=== PATIENT | male | born 1970 | race Caucasian/White ===

== ENCOUNTER → 2016-07-27 | Outpatient (CLI) | payer MEDICAID | LOC: LAB 07:53 | PROVIDERS: ATTEND Psychiatry & Neurology Psychiatry | DX: Z79.899 Other long term (current) drug therapy (principal); F63.81 Intermittent explosive disorder; F29 Unspecified psychosis not due to a substance or known physiological condition; F71 Moderate intellectual disabilities | CPT/HCPCS: 36415; 80164 ==

== ENCOUNTER 2016-09-04 17:46 | Emergency (ER) | payer MEDICAID ==
[2016-09-04 17:54] VITALS: BP 130/84; BMI 26.2
--- NOTE | 2016-09-04 18:20 | DR.LACERAT ---
HPI - Time Seen Time seen: 18:16 - Primary Care Physician Primary Care Physician: CRESCENCIO YOU - Complaints Chief Complaint:: PT HAS MR AND CAN'T SEE VERY WELL AND HE WAS FALLING DOWN THE CEMENT STEPS AND HIS NOSE IS SWOLLEN AND HE HAS A SMALL ONE CM LAC NOTED .. - Reviewed Nurses Notes Reviewed: Yes - Source History Provided: Patient, Family Member - Mode of Arrival Mode of Arrival: Ambulatory - Timing Onset of Chief Complaint: 09/04/16 - Context Mechanism: Fall - Severity Pain Severity: Mild Bleeding:: Controlled - Associated Signs and Symptoms Associated Signs and Symptoms: None - Other History Other History: Mental Retardation PMH - PMH Past Medical History: Yes Past Medical History Comment: MR Past Surgical History: No - Family History History of Family Medical Conditions: No - Social History Does patient currently use any type of tobacco product: No Have you used tobacco products in the last 12 months: No Type of Tobacco Use: None Does any household member use tobacco: No Alcohol Use: None Do you use any recreational Drugs:: No Lives With: Family Lives Where: Home - infectious screening In the last 2 months have you had wt loss of >10#?: NO Have you had fever, night sweats or hemotysis?: No Have you traveled outside the country in the last 6 months?: No Isolation: Standard ROS - Review of Systems Constitutional: No Symptoms Reported Eyes: No Symptoms Reported ENTM: Nose Pain (1cm cut) Respiratoy: No Symptoms Reported Cardiovascular: No Symptoms Reported Gastrointestinal/Abdominal: No Symptoms Reported Genitourinary: No Symptoms Reported Neurological: No Symptoms Reported Musculoskeletal: No Symptoms Reported Integumentary: Wound (nose) Hematologic/Lymphatic: No Symptoms Reported Endocrine: No Symptoms Reported Psychiatric: Other (mental retardation) PE - Vital Signs Vitals: Temperature 98.5 F Pulse Rate 119 Respiratory Rate 22 Blood Pressure 130/84 O2 Sat by Pulse Oximetry 96 - General Limitations: No Limitations General Appearance: Alert, In No Apparent Distress - Head Head Exam: Normal Inspection - Eyes Eye exam: Normal Appearance, EOMI, Periorbital Swelling. negative: Scleral Icterus, Conjunctival Injection - ENT ENT Exam: Other (nose cut 1cm) - Neck Neck Exam: Normal Inspection, Full ROM, Trachea Midline - Respiratory Respiratory Exam: negative: Accessory Muscle Use, Respiratory Distress - Extremities Extremities Exam: Normal Inspection - Back Back Exam: Normal Inspection - Neurologic Neurological Exam: Alert, CN II-XII Intact - Psychiatric Psychiatric Exam: Flat Affect - Skin Skin Exam: Normal Color. negative: Intact (1cm cut) Type of Lesion: Laceration ROR - XRAY XRAY Interpreted by: Radiologist XRAY Findings: Face xray: no fx - Diagnosis Discharge Problem: Cut of face - Discharge Plan Condition: Stable Prescriptions: Ibuprofen [MOTRIN TAB 600 MG *] 600 mg PO TID PRN #60 tab PRN Reason: Pain/Inflammation - Follow ups/Referrals Follow ups/Referrals: Robbin Neff [Primary Care Provider] - 3 days - Instructions
--- NOTE | 2016-09-04 18:46 | RAD ---
Four views of the facial bones Indication: Laceration to nose after fall Findings: No displaced nasal bone fracture identified. The bony nasal septum is midline. No air-flui d level identified within the maxillary or frontal sinuses. No discrete sinus mass. Mandible remains intact without evidence of dislocation. Impression: No displaced facial bone fracture identified. Reported By:
--- NOTE | 2016-09-04 19:58 | RAD ---
HISTORY: Fall Study: 2-view left knee Comparison: None Findings: No evidence for acute cortical disruption or dislocation. The medial and lateral tibiofemoral wesley rtments appear unremarkable without loss of significant joint space. The lateral radiograph fails t o demonstrate significant joint effusion. Patellofemoral compartment is normal in its appearance. IMPRESSION: 1. Negative exam. Reported By:
--- NOTE | 2016-09-04 20:21 | RAD ---
KNEE RADIOGRAPHS CLINICAL HISTORY: 46-year-old male status post fall on concrete with right knee pain. COMPARISON: None. FINDINGS: Frontal and lateral views of the right knee demonstrate no acute fracture or malalignment. There is no suprapatellar joint effusion. The medial and lateral joint spaces are maintained. The mineralization is normal. There is no aggressive bone lesion or abnormal periosteal reaction. The re is no soft tissue calcification or gas. IMPRESSION: No radiographic evidence for acute fracture or osseous abnormality of the right knee. Reported By:
== END 2016-09-04 20:23 | disposition home or self-care (01) ==
LOC: ER 17:57
PROC: 0WQ20ZZ Repair Face, Open Approach (ICD-10-PCS; principal; 2016-09-04)
DX: S01.91XA Laceration without foreign body of unspecified part of head, initial encounter (principal); W10.9XXA Fall (on) (from) unspecified stairs and steps, initial encounter; Y92.9 Unspecified place or not applicable
CPT/HCPCS: 12011; 70150; 73560; 99283

== ENCOUNTER 2016-10-14 19:50 | Emergency (ER) | payer MEDICAID ==
[2016-10-14 19:58] VITALS: BP 141/91; BMI 28.3
--- NOTE | 2016-10-14 20:34 | DR.GENAD ---
HPI - PCP Primary Care Physician: Tawanda - Complaint/Symptoms Chief Complaint Doctors Comments: Patient lives in a fpc. He spends some days with mom. She states that he has been having mini seizures that last 1-2 minutes, manifested by drawing his hands up and calling out for her. His seizures began during infancy. He is on single drug therapy. There is no fever, vomiting or diarrhea Chief Complaint:: " Hes having seizures one after another lasting about 2mins. - Source History Provided: Patient - Mode of Arrival Mode of Arrival: Ambulatory - Timing Onset of Chief Complaint: 10/14/16 PMH - PMH Past Medical History: Yes Past Medical History: Seizures Past Surgical History: No - Family History History of Family Medical Conditions: No Family Medical History: Diabetes Mellitus, Hypertension - Social History Alcohol Use: None Do you use any recreational Drugs:: No - infectious screening Have you traveled outside the country in the last 6 months?: No ROS - Review of Systems Eyes: No Symptoms Reported ENTM: No Symptoms Reported Respiratoy: No Symptoms Reported Cardiovascular: No Symptoms Reported Gastrointestinal/Abdominal: No Symptoms Reported Genitourinary: No Symptoms Reported Neurological: No Symptoms Reported Musculoskeletal: No Symptoms Reported Integumentary: No Symptoms Reported Hematologic/Lymphatic: No Symptoms Reported Endocrine: No Symptoms Reported Psychiatric: No Symptoms Reported All Other Systems: Reviewed and Negative PE - Vital Signs Vitals: Temperature 97.9 F Pulse Rate 96 Respiratory Rate 18 Blood Pressure 141/91 O2 Sat by Pulse Oximetry 98 - General Limitations: Language Barrier General Appearance: Alert, In No Apparent Distress - Head Head Exam: Normal Inspection, Atraumatic - Eyes Eye exam: Normal Appearance, PERRL, EOMI - ENT ENT Exam: Normal Exam External Ear Exam: Normal External Inspection TM/Canal Exam: Bilateral Normal Nose Exam: Normal Nose Exam, Sinus Tenderness Mouth Exam: Normal Inspection Throat Exam: Normal Inspection - Neck Neck Exam: Normal Inspection, Full ROM - Chest Chest Inspection: Normal Inspection - Respiratory Respiratory Exam: Normal Lung Sounds Bilat Respiratory Exam: Bilateral Clear to Auscultation - Cardiovascular Cardiovascular Exam: Regular Rate, Normal Rhythm - Abdominal Exam Abdominal Exam: Normal Inspection, Normal Bowel Sounds Abdominal Tenderness: negative: RUQ, RLQ, LUQ, LLQ, Epigastrium, Suprapubic, Diffuse, Mild, Moderate, Severe, Other - Extremities Extremities Exam: Normal Inspection, Full ROM - Back Back Exam: Normal Inspection - Neurologic Neurological Exam: Alert, Oriented X3, CN II-XII Intact - Psychiatric Psychiatric Exam: Normal Affect - Skin Skin Exam: Warm, Dry, Intact Course - Reevaluation 1st: Unchanged ROR - Labs Reviewed Laboratory Results Reviewed?: Yes (valporic level 91mg/dl) Laboratory: Valproic Acid 91.0 ug/mL (50-100) 10/14/16 21:08 - XRAY XRAY Interpreted by: Radiologist (Chest: poor inspiratory effort; no pulmonary infiltrate) - Diagnosis Discharge Problem: Seizure disorder - Discharge Plan Condition: Stable - Follow ups/Referrals Follow ups/Referrals: Robbin Neff [Primary Care Provider] - 3 days - Instructions
--- NOTE | 2016-10-14 23:14 | RAD ---
AP Chest Indication: Seizure disorder Comparison: 07/15/2011 Findings: The trachea is midline. The cardiac silhouette is unremarkable. The lungs are hypoinflated with cr owding of the central pulmonary vasculature and subsegmental atelectasis within the lung bases. No f ocal airspace opacity pleural effusion or pneumothorax. No acute osseous abnormality. IMPRESSION: 1. No acute cardiopulmonary abnormality. Reported By:
== END 2016-10-14 22:02 | disposition home or self-care (01) ==
LOC: ER 19:50
DX: G40.909 Epilepsy, unspecified, not intractable, without status epilepticus (principal)
CPT/HCPCS: 36415; 71010; 80164; 99282

== ENCOUNTER → 2017-04-01 | Outpatient (CLI) | payer MEDICAID ==
[2017-04-01 09:00] LABS: BASOPHILS % (AUTO) 0.8 % (0.2-1.0); EOSINOPHILS # (AUTO) 0.1 x10^3/uL (0.0-0.2); EOSINOPHILS % (AUTO) 1.1 % (0.9-2.9); HEMATOCRIT 48.3 % (42.0-54.0); HEMOGLOBIN 16.9 g/dL (13.5-18.0); LYMPHOCYTES # (AUTO) 1.4 X10^3/uL (1.3-2.9); MEAN CORPUSCULAR HEMOGLOBIN 33.7 pg (27.0-34.0); MEAN CORPUSCULAR HGB CONC 34.9 g/dL (33.0-35.0); MEAN CORPUSCULAR VOLUME 96.4 fL (80.0-100.0); MEAN PLATELET VOLUME 8.7 fL (7.4-11.0); MONOCYTES # (AUTO) 0.5 x10^3/uL (0.3-0.8); NEUTROPHILS # (AUTO) 3.7 x10^3/uL (2.2-4.8); NEUTROPHILS % (AUTO) 65.1 % (42.0-75.0); PLATELET COUNT 258 X10^3/uL (150.0-450.0); RED BLOOD COUNT 5.01 X10^6/uL (4.7-6.0); RED CELL DISTRIBUTION WIDTH 12.2 % (11.6-16.5); WHITE BLOOD COUNT 5.7 X10^3/uL (3.6-10.0)
[2017-04-01 09:21] LABS: ALANINE AMINOTRANSFERASE 26 Units/L (12-78); ALBUMIN 4.1 g/dL (3.4-5.0); ALKALINE PHOSPHATASE 85 Units/L (46-116); ASPARTATE AMINO TRANSFERASE 15 Units/L (15-37); BLOOD UREA NITROGEN 12 mg/dL (7-18); CALCIUM 9.3 mg/dL (8.5-10.1); CARBON DIOXIDE 26.5 mmol/L (21-32); CHLORIDE 106 mmol/L (98-107); CHOL/HDL RATIO 2.1 (0.0-5.0); CHOLESTEROL 159 mg/dL (0-200); CREATININE 1.08 mg/dL (0.70-1.30); HDL CHOLESTEROL 75 mg/dL (40-60); SODIUM 140 mmol/L (136-145); TOTAL PROTEIN 7.9 g/dL (6.4-8.2); TRIGLYCERIDES 96 mg/dL (0-150); TSH (3RD GENERATION) 1.316 uIU/mL (0.358-3.74); eGFR BLACK RACES > 60 (>60); eGFR NON BLACK RACES > 60 (>60)
== END ==
LOC: LAB 08:13
PROVIDERS: ATTEND Psychiatry & Neurology Psychiatry
DX: F63.81 Intermittent explosive disorder (principal); F29 Unspecified psychosis not due to a substance or known physiological condition; F71 Moderate intellectual disabilities; Z79.899 Other long term (current) drug therapy
CPT/HCPCS: 36415; 80053; 80061; 80164; 84443; 85025

== ENCOUNTER 2019-10-19 18:05 | Inpatient (IN) ==
[2019-10-19 18:21] VITALS: BMI 28.2
[2019-10-19] MEDS ORDERED: VENTOLIN or PROAIR HFA IN SCH (20:45)
--- NOTE | 2019-10-19 21:16 | RAD ---
HISTORYmother stated he was tested for covid last luna and today they were told he was positive. he has been running a fever and short of breathSTUDYCHEST, 1 [id number]/18/2017FINDINGSLow lung volume. Heart size is upper limits of normal. There are patchy bilateral perihilar and middle/lower lung zone airspace opacities, left greater than right. No pleural effusion or pneumothorax. Mild multilevel spondylosis.IMPRESSIONBilateral perihilar and middle/lower lung zone patchy airspace opacities, concerning for multifocal pneumonia.No pleural effusion or pneumothorax.Borderline cardiomegaly.Electronically signed by: Abi Fowler (Oct 19, 2019 21:15:09)
[2019-10-19 21:26] LABS: BASOPHILS % (AUTO) 0.3 % (0.2-1.0); HEMATOCRIT 43.8 % (42.0-54.0); LYMPHOCYTES # (AUTO) 0.7 X10^3/uL (1.3-2.9); LYMPHOCYTES % (AUTO) 8.8 % (21.0-51.0); MEAN CORPUSCULAR HEMOGLOBIN 34.3 pg (27.0-34.0); MEAN CORPUSCULAR HGB CONC 34.2 g/dL (33.0-35.0); MEAN CORPUSCULAR VOLUME 100.3 fL (80.0-100.0); MEAN PLATELET VOLUME 8.8 fL (7.4-11.0); MONOCYTES # (AUTO) 0.7 x10^3/uL (0.3-0.8); MONOCYTES % (AUTO) 8.7 % (0.0-13.0); NEUTROPHILS # (AUTO) 6.8 x10^3/uL (2.2-4.8); NEUTROPHILS % (AUTO) 82.2 % (42.0-75.0); PLATELET COUNT 181 X10^3/uL (150.0-450.0); RED BLOOD COUNT 4.36 X10^6/uL (4.7-6.0); RED CELL DISTRIBUTION WIDTH 12.1 % (11.6-16.5); WHITE BLOOD COUNT 8.3 X10^3/uL (3.6-10.0)
[2019-10-19 21:40] LABS: ALANINE AMINOTRANSFERASE 19 Units/L (12-78); ALBUMIN 3.1 g/dL (3.4-5.0); ALKALINE PHOSPHATASE 55 Units/L (46-116); ASPARTATE AMINO TRANSFERASE 27 Units/L (15-37); BLOOD UREA NITROGEN 16 mg/dL (7-18); CALCIUM 9.1 mg/dL (8.5-10.1); CARBON DIOXIDE 26.3 mmol/L (21-32); CHLORIDE 103 mmol/L (98-107); COR CA(FOR HYPOALB) 9.8 mg/dL (8.5-10.1); COR NA(FOR HYPERGLY) 142 mmol/L (136-145); CREATININE 1.29 mg/dL (0.70-1.30); SODIUM 142 mmol/L (136-145); TOTAL PROTEIN 7.7 g/dL (6.4-8.2); eGFR NON BLACK RACES > 60 (>60)
[2019-10-19] MEDS ORDERED: NS 1/2 1000 ML IV 1,000 ML IV ONE (21:47)
[2019-10-19] MEDS: VSL#3 PO SCH (22:01)
[2019-10-19] MEDS: TUSSIONEX PENNKINETIC SUSP PO SCH (22:01)
[2019-10-19] MEDS: LEVAQUIN PREMIX IV 750 MG 750 MG/150 ML BAG IV SCH (22:01)
[2019-10-19] MEDS: NS 1/2 1000 ML IV 1,000 ML IV SCH (22:01)
[2019-10-19] MEDS: ROBITUSSIN DM PO SCH (22:02)
[2019-10-19 22:16] LABS: ABG ALLEN TEST POS; ABG BASE EXCESS 5.2 mmol/L (-2.0-2.0)
[2019-10-20] MEDS: VENTOLIN or PROAIR HFA IN SCH ×4 (00:40→18:40)
[2019-10-20] MEDS: ROBITUSSIN DM PO SCH ×5 (02:54→20:55)
[2019-10-20 05:58] LABS: ABG ALLEN TEST POS; ABG BASE EXCESS 4.6 mmol/L (-2.0-2.0); ABG HCO3 28.3 mmol/L (22-26)
[2019-10-20] MEDS: DEPAKOTE D.R. TAB PO SCH ×3 (07:14→20:53)
[2019-10-20] MEDS ORDERED: DEPAKOTE D.R. TAB PO ONE ×2 (07:14→19:53)
[2019-10-20] MEDS ORDERED: TYLENOL 325 MG TAB PO ONE (07:28)
[2019-10-20] MEDS: TYLENOL 325 MG TAB PO PRN ×2 (07:30→15:41)
[2019-10-20 08:47] LABS: BASOPHILS # (AUTO) 0.1 X10^3/uL (0.0-0.1); BASOPHILS % (AUTO) 1.1 % (0.2-1.0); HEMATOCRIT 42.8 % (42.0-54.0); HEMOGLOBIN 14.5 g/dL (13.5-18.0); LYMPHOCYTES # (AUTO) 1.3 X10^3/uL (1.3-2.9); LYMPHOCYTES % (AUTO) 14.5 % (21.0-51.0); MEAN CORPUSCULAR HEMOGLOBIN 33.8 pg (27.0-34.0); MEAN CORPUSCULAR HGB CONC 33.9 g/dL (33.0-35.0); MEAN CORPUSCULAR VOLUME 99.7 fL (80.0-100.0); MEAN PLATELET VOLUME 9.3 fL (7.4-11.0); MONOCYTES # (AUTO) 0.8 x10^3/uL (0.3-0.8); MONOCYTES % (AUTO) 9.5 % (0.0-13.0); NEUTROPHILS # (AUTO) 6.6 x10^3/uL (2.2-4.8); NEUTROPHILS % (AUTO) 74.9 % (42.0-75.0); PLATELET COUNT 174 X10^3/uL (150.0-450.0); RED BLOOD COUNT 4.29 X10^6/uL (4.7-6.0); RED CELL DISTRIBUTION WIDTH 12.1 % (11.6-16.5); WHITE BLOOD COUNT 8.9 X10^3/uL (3.6-10.0)
[2019-10-20] MEDS: LOVENOX INJ 40 MG SYR SC SCH (08:53)
[2019-10-20] MEDS: VSL#3 PO SCH (08:54)
[2019-10-20] MEDS: TUSSIONEX PENNKINETIC SUSP PO SCH ×2 (08:54→20:55)
[2019-10-20 09:03] LABS: ALANINE AMINOTRANSFERASE 13 Units/L (12-78); ALBUMIN 2.7 g/dL (3.4-5.0); ALKALINE PHOSPHATASE 51 Units/L (46-116); ASPARTATE AMINO TRANSFERASE 29 Units/L (15-37); BLOOD UREA NITROGEN 17 mg/dL (7-18); CALCIUM 8.9 mg/dL (8.5-10.1); CARBON DIOXIDE 24.5 mmol/L (21-32); CHLORIDE 102 mmol/L (98-107); COR CA(FOR HYPOALB) 9.9 mg/dL (8.5-10.1); CREATININE 1.05 mg/dL (0.70-1.30); SODIUM 138 mmol/L (136-145); TOTAL PROTEIN 7.1 g/dL (6.4-8.2); eGFR NON BLACK RACES > 60 (>60)
[2019-10-20] MEDS ORDERED: NS 1/2 1000 ML IV 1,000 ML IV ONE (10:16)
[2019-10-20] MEDS: NS 1/2 1000 ML IV 1,000 ML IV SCH (11:10)
[2019-10-20] MEDS: SINGULAIR TAB 10 MG PO SCH (11:40)
[2019-10-20] MEDS: PEPCID TAB 20 MG PO SCH ×2 (11:40→20:55)
--- NOTE | 2019-10-20 12:02 | RAD ---
HISTORYCOUGH, CONGESTION, COVID POSTITIVESTUDYPortable AP chestCOMPARISONYesterday October 18FINDINGSThere is persistent bilateral lower lobe opacities, left overall worse than right. The heart size is normal. There is no effusion evident. There is no bony abnormality.IMPRESSIONPersistent lower lobe pneumonia, left worse than rightElectronically signed by: NAHID HESTER (Oct 20, 2019 12:00:50)
[2019-10-20] MEDS: TESSALON PERLES PO SCH ×2 (13:15→21:00)
--- NOTE | 2019-10-20 19:33 | DR.H&P ---
H&P - History & Physical for Day of: H&P Date: 10/19/19 - Chief Complaint Chief Complaint: COUGH, FEVER, SOB, MALAISE - History of Present Illness History of Present Illness: IS A 49 YEAR OLD PATIENT OF OURS WHO PRESENTED TO THE HOSPITAL A DIRECT ADMISSION DUE TO PERSISTENT COUGH, MALAISE, FEVER, AND SHORTNESS OF BREATH. PATIENTS MOTHER REPORTED THAT THEY WERE TOLD THIS MORNING THAT HE WAS POSITIVE FOR COVID-19. HE WAS PLACED ON ZITHROMAX, ROBITUSSIN, AND PREDNISONE ON 10/16/19. AUSCULTATION OF LUNG SILVA REVEALED SCATTERED WHEEZING THROUGHOUT. HIS PMH INCLUDES SEIZURES, HYPERLIPIDEMIA, GERD, MUSCULAR DYSTROPHY, OSTEOPOROSIS, MUSCLE WEAKNESS. [facility]. ON ARRIVAL TO THE HOSPITAL, VITALS WERE 99.8-78-18-88%RA-126/76. LABS WERE OBTAINED. ABNORMAL LAB VALUES INCLUDE THE FOLLOWING: RBC 4.36, GLUCOSE 114, LACTATE DEHYDROGENASE 333, FERRITIN 922, CRP 177.70, ALBUMIN 3.1, GLOBULIN 4.6. ABG REVEALED: PH 7.480, PC02 39.0, P02 67.0, HC03 29.0, 02 SATURATION 94.0, BASE EXCESS 5.2, FI02 32.0. BLOOD CULTURES ARE PENDING. A CHEST XRAY WAS OBTAINED AND REVEALED: Bilateral perihilar and middle/lower lung zone patchy airspace opacities, concerning for multifocal pneumonia. No pleural effusion or pneumothorax. Borderline cardiomegaly. HE WAS STARTED ON 1/2NS AT 75 ML/HR, LEVAQUIN 750MG IV DAILY, PROAIR INHALER 2 PUFFS Q6H, TUSSIONEX 5ML PO Q12H, TESSALON PERLES TID, ROBITUSSIN DM 10ML PO QID, LOVENOX 40MG SC DAILY, TYLENOL 650MG PO Q4H PRN, AND HIS HOME MEDICATIONS WERE RESUMED. WE WILL CONTINUE WITH CURRENT PLAN OF CARE TODAY. OTHERWISE, WE PLAN TO FOLLOW UP WITH AM LABS AND CHEST XRAY AND CONTINUE TO MONITOR. - Past Medical History Past Medical History: Dyslipidemia, GERD, Seizures Additional Medical History: MUSCULAR DYSPTROPHY, OSTEOPOROSIS, MUSCLE WEAKNESS - Past Surgical History Surgical History: Unknown - Family History Family Medical History: Diabetes Mellitus, Hypertension - Social History Does patient currently use any type of tobacco product: No Have you used tobacco products in the last 12 months: No Type of Tobacco Use: None Does any household member use tobacco: No Alcohol Use: None Drug Use: None - Medications Home Medications: milk Allergy (Verified 10/19/19 18:14) CONTINUE taking the following medications acetaminophen [Tylenol] 325 mg PO Q6H PRN 10/19/19 [History] alendronate 70 mg PO WEEKLY 10/19/19 [History] azithromycin 250 mg PO DAILY 10/19/19 [History] [id number]-MS [Bromfed DM] 5 ml PO Q6H PRN 10/19/19 [History] calcium carbonate-vitamin D3 [Caltrate 600 plus D] 600 - 800 tab PO BID 10/19/19 [History] clonazepam [Klonopin] 0.5 mg PO HS 10/19/19 [History] divalproex [Depakote] 500 mg PO BID 10/19/19 [History] ergocalciferol (vitamin D2) [Vitamin D2] 50,000 unit PO WEEKLY 10/19/19 [History] famotidine [Pepcid] 20 mg PO BID 10/19/19 [History] methylprednisolone See Rx Instructions .ROUTE .COMPLEX 10/19/19 [History] mirtazapine 45 mg PO HS 10/19/19 [History] montelukast [Singulair] 10 mg PO DAILY 10/19/19 [History] quetiapine [Seroquel] 400 mg PO DAILY 10/19/19 [History] simvastatin [Zocor] 20 mg PO HS 10/19/19 [History] trazodone 150 mg PO HS 10/19/19 [History] - Review of Systems Constitutional: Fever, Chills, Weakness, Malaise Eyes: No Symptoms Reported ENT: No Symptoms Reported Respiratory: See HPI, Cough, Shortness of Breath, Wheezing Cardiovascular: No Symptoms Reported Gastrointestinal: No Symptoms Reported Genitourinary: No Symptoms Reported Musculoskeletal: No Symptoms Reported Skin: No Symptoms Reported Neurological: Weakness - Physical Exam Vital Signs: Temperature 100.4 F Pulse Rate [Left] 101 Pulse Rate 101 Respiratory Rate 33 Blood Pressure [Right Arm] 100/59 Blood Pressure [Left Arm] 119/66 Blood Pressure 103/60 O2 Sat by Pulse Oximetry 96 Oriented: Normal Eyes: Normal Ear: Normal Nose: Normal Throat: Normal Respiratory: Wheezes Throughout Cardiovascular: Normal. negative: S3, S4, Murmur : Normal Auscultation: Bowel Sounds: Normal Palpation: Normal Tenderness: Normal Skin: Normal Musculoskeletal: Normal Psychiatric: Normal Mood Description: Calm Affect: Normal Speech Pattern: Clear - Assessment/Plan (1) COVID-19 Status: Acute Plan: ADMIT, 1/2NS AT 75 ML/HR, LEVAQUIN 750MG IV DAILY, PROAIR INHALER 2 PUFFS Q6H, TUSSIONEX 5ML PO Q12H, TESSALON PERLES TID, ROBITUSSIN DM 10ML PO QID, LOVENOX 40MG SC DAILY, TYLENOL 650MG PO Q4H PRN, AND HIS HOME MEDICATIONS WERE RESUMED, MONITOR LABS AND CHEST XRAY (2) Pneumonia Qualifiers: Pneumonia type: due to unspecified organism Laterality: bilateral Lung location: unspecified part of lung Qualified Code(s): J18.9 - Pneumonia, unspecified organism Status: Acute (3) SOB (shortness of breath) Status: Acute (4) Fever Qualifiers: Fever type: unspecified Qualified Code(s): R50.9 - Fever, unspecified Status: Acute (5) GERD (gastroesophageal reflux disease) Qualifiers: Esophagitis presence: esophagitis presence not specified Qualified Code(s): K21.9 - Gastro-esophageal reflux disease without esophagitis Status: Acute Plan: CONTINUE HOME MEDS (6) Hyperlipidemia Qualifiers: Hyperlipidemia type: mixed hyperlipidemia Qualified Code(s): E78.2 - Mixed hyperlipidemia Status: Acute Plan: CONTINUE HOME MEDS (7) Seizure disorder Status: Chronic - Allergies Allergies/Adverse Reactions: Allergies Allergy/AdvReac Type Severity Reaction Status Date / Time milk Allergy Verified 10/19/19 18:14
[2019-10-20] MEDS: MOTRIN TAB 800 MG PO PRN (19:35)
[2019-10-20] MEDS ORDERED: REMERON ONE ×2 (19:58→20:12)
[2019-10-20] MEDS ORDERED: ZOCOR TAB 20 MG PO ONE (19:58)
[2019-10-20] MEDS ORDERED: DESYREL PO ONE ×2 (19:58→20:12)
[2019-10-20] MEDS: DESYREL PO SCH (20:53)
[2019-10-20] MEDS: KLONOPIN TAB 0.5 MG PO SCH (20:54)
[2019-10-20] MEDS: LEVAQUIN PREMIX IV 750 MG 750 MG/150 ML BAG IV SCH (20:54)
[2019-10-20] MEDS: REMERON PO SCH (20:54)
[2019-10-20] MEDS: ZOCOR TAB 20 MG PO SCH (20:54)
[2019-10-21] MEDS ORDERED: NS 1/2 1000 ML IV 1,000 ML IV ONE ×2 (01:01→16:15)
[2019-10-21] MEDS: VENTOLIN or PROAIR HFA IN SCH ×4 (01:22→16:50)
[2019-10-21] MEDS: NS 1/2 1000 ML IV 1,000 ML IV SCH ×2 (01:27→16:30)
[2019-10-21] MEDS: ROBITUSSIN DM PO SCH ×5 (04:33→21:16)
[2019-10-21] MEDS: TESSALON PERLES PO SCH ×3 (05:00→21:17)
[2019-10-21 05:30] LABS: BASOPHILS # (AUTO) 0.1 X10^3/uL (0.0-0.1); BASOPHILS % (AUTO) 0.8 % (0.2-1.0); EOSINOPHILS % (AUTO) 0.1 % (0.9-2.9); HEMATOCRIT 45.8 % (42.0-54.0); HEMOGLOBIN 15.4 g/dL (13.5-18.0); LYMPHOCYTES # (AUTO) 2.4 X10^3/uL (1.3-2.9); LYMPHOCYTES % (AUTO) 22.6 % (21.0-51.0); MEAN CORPUSCULAR HEMOGLOBIN 34.4 pg (27.0-34.0); MEAN CORPUSCULAR HGB CONC 33.7 g/dL (33.0-35.0); MEAN CORPUSCULAR VOLUME 102.1 fL (80.0-100.0); MEAN PLATELET VOLUME 9.3 fL (7.4-11.0); MONOCYTES # (AUTO) 0.3 x10^3/uL (0.3-0.8); MONOCYTES % (AUTO) 2.9 % (0.0-13.0); NEUTROPHILS # (AUTO) 7.8 x10^3/uL (2.2-4.8); NEUTROPHILS % (AUTO) 73.6 % (42.0-75.0); PLATELET COUNT 231 X10^3/uL (150.0-450.0); RED BLOOD COUNT 4.49 X10^6/uL (4.7-6.0); WHITE BLOOD COUNT 10.6 X10^3/uL (3.6-10.0)
[2019-10-21 05:44] LABS: ABG BASE EXCESS -0.1 mmol/L (-2.0-2.0); ABG HCO3 25.4 mmol/L (22-26)
[2019-10-21 06:23] LABS: eGFR NON BLACK RACES > 60 (>60)
[2019-10-21 06:41] LABS: ALANINE AMINOTRANSFERASE 34 Units/L (12-78); ALBUMIN 2.4 g/dL (3.4-5.0); ALKALINE PHOSPHATASE 81 Units/L (46-116); ASPARTATE AMINO TRANSFERASE 75 Units/L (15-37); BLOOD UREA NITROGEN 17 mg/dL (7-18); CALCIUM 8.3 mg/dL (8.5-10.1); CARBON DIOXIDE 26.4 mmol/L (21-32); CHLORIDE 101 mmol/L (98-107); COR CA(FOR HYPOALB) 9.6 mg/dL (8.5-10.1); CREATININE 1.24 mg/dL (0.70-1.30); SODIUM 137 mmol/L (136-145); TOTAL PROTEIN 7.2 g/dL (6.4-8.2)
[2019-10-21] MEDS ORDERED: DEPAKOTE D.R. TAB PO ONE ×2 (08:29→20:07)
[2019-10-21] MEDS: PEPCID TAB 20 MG PO SCH ×2 (09:04→21:15)
[2019-10-21] MEDS: SINGULAIR TAB 10 MG PO SCH (09:04)
[2019-10-21] MEDS: VSL#3 PO SCH (09:04)
[2019-10-21] MEDS: OSCAL+D or CALTRATE+D PO SCH (09:05)
[2019-10-21] MEDS: LOVENOX INJ 40 MG SYR SC SCH (09:05)
[2019-10-21] MEDS: DEPAKOTE D.R. TAB PO SCH ×2 (09:06→21:14)
[2019-10-21] MEDS: MOTRIN TAB 800 MG PO PRN ×2 (09:10→21:24)
[2019-10-21] MEDS: TUSSIONEX PENNKINETIC SUSP PO SCH ×2 (09:10→21:16)
[2019-10-21] MEDS ORDERED: REMDESIVIR (INVESTIGATIONAL DRUG GS-5734) 200 MG in NS 250 ML IV 250 ML IV NR (09:30)
[2019-10-21] MEDS: ACTEMRA 400 MG in NS 100 ML IV 80 ML IV SCH (11:50)
[2019-10-21] MEDS: TYLENOL 325 MG TAB PO PRN (12:04)
[2019-10-21] MEDS: SOLU-Medrol 40 MG VIAL IVP SCH ×2 (13:54→21:17)
[2019-10-21] MEDS: KLONOPIN TAB 0.5 MG PO SCH (21:14)
[2019-10-21] MEDS: DESYREL PO SCH (21:14)
[2019-10-21] MEDS: LEVAQUIN PREMIX IV 750 MG 750 MG/150 ML BAG IV SCH (21:14)
[2019-10-21] MEDS: REMERON PO SCH (21:15)
[2019-10-21] MEDS: ZOCOR TAB 20 MG PO SCH (21:17)
[2019-10-22] MEDS: VENTOLIN or PROAIR HFA IN SCH ×5 (00:50→19:49)
[2019-10-22 05:16] LABS: BASOPHILS % (AUTO) 0.2 % (0.2-1.0); HEMATOCRIT 41.2 % (42.0-54.0); HEMOGLOBIN 13.9 g/dL (13.5-18.0); LYMPHOCYTES # (AUTO) 0.6 X10^3/uL (1.3-2.9); LYMPHOCYTES % (AUTO) 6.7 % (21.0-51.0); MEAN CORPUSCULAR HEMOGLOBIN 34.2 pg (27.0-34.0); MEAN CORPUSCULAR HGB CONC 33.8 g/dL (33.0-35.0); MEAN CORPUSCULAR VOLUME 101.2 fL (80.0-100.0); MONOCYTES # (AUTO) 0.2 x10^3/uL (0.3-0.8); MONOCYTES % (AUTO) 1.9 % (0.0-13.0); NEUTROPHILS % (AUTO) 91.2 % (42.0-75.0); PLATELET COUNT 319 X10^3/uL (150.0-450.0); RED BLOOD COUNT 4.07 X10^6/uL (4.7-6.0); RED CELL DISTRIBUTION WIDTH 12.1 % (11.6-16.5); WHITE BLOOD COUNT 8.8 X10^3/uL (3.6-10.0)
[2019-10-22 05:18] LABS: ABG ALLEN TEST POS; ABG BASE EXCESS 0.1 mmol/L (-2.0-2.0); ABG HCO3 25.4 mmol/L (22-26)
[2019-10-22 05:34] LABS: ALANINE AMINOTRANSFERASE 21 Units/L (12-78); ALBUMIN 1.9 g/dL (3.4-5.0); ALKALINE PHOSPHATASE 62 Units/L (46-116); ASPARTATE AMINO TRANSFERASE 43 Units/L (15-37); BLOOD UREA NITROGEN 18 mg/dL (7-18); CALCIUM 8.5 mg/dL (8.5-10.1); CARBON DIOXIDE 25.4 mmol/L (21-32); CHLORIDE 106 mmol/L (98-107); COR CA(FOR HYPOALB) 10.2 mg/dL (8.5-10.1); COR NA(FOR HYPERGLY) 140 mmol/L (136-145); CREATININE 1.14 mg/dL (0.70-1.30); SODIUM 139 mmol/L (136-145); TOTAL PROTEIN 6.4 g/dL (6.4-8.2); eGFR NON BLACK RACES > 60 (>60)
[2019-10-22] MEDS ORDERED: NS 1/2 1000 ML IV 1,000 ML IV ONE (05:37)
[2019-10-22 05:41] LABS: BAND NEUTROPHILS % 44 % (0-10); METAMYELOCYTES % 11; MYELOCYTES % 3
[2019-10-22 06:17] LABS: PLATELET MORPHOLOGY COMMENT NORMAL (NORMAL)
[2019-10-22] MEDS: NS 1/2 1000 ML IV 1,000 ML IV SCH ×2 (06:17→20:16)
[2019-10-22] MEDS: TESSALON PERLES PO SCH ×3 (06:18→21:15)
[2019-10-22] MEDS: SOLU-Medrol 40 MG VIAL IVP SCH ×3 (06:18→22:15)
--- NOTE | 2019-10-22 08:04 | RAD ---
HISTORYShortness of breathSTUDYChest AP [id number]/23/2020FINDINGSPositioning is less than optimal with the patient's chin obscurin g the left lung apex. The patient is rotated somewhat to the left. There is near complete opacificati on of the left yamliex thorax representing either worsening left lung infiltrates, left lung volume loss or combination. Chest CT with contrast is recommended for further evaluation. Heart size is difficul t to assess due to obscuration of the heart borders. The right lung appears free of acute infiltrates right basilar subsegmental atelectasis is present. No definite pleural effusions are identified. Bon y thorax is unremarkable.IMPRESSIONIncreasing opacification of the left yamilex thorax when compared wit h the prior examination which could be due to worsening infiltrates, developing atelectasis, or both. Chest CT with contrast would be of further diagnostic value.Subsegmental atelectasis right lung base Electronically signed by: KATHERINE MIRZA (Oct 22, 2019 08:03:22)
[2019-10-22] MEDS ORDERED: DEPAKOTE D.R. TAB PO ONE ×2 (08:39→19:42)
[2019-10-22] MEDS: ACTEMRA 400 MG in NS 100 ML IV 80 ML IV SCH (08:59)
[2019-10-22] MEDS: DEPAKOTE D.R. TAB PO SCH ×2 (09:00→20:12)
[2019-10-22] MEDS: PEPCID TAB 20 MG PO SCH ×2 (09:01→20:13)
[2019-10-22] MEDS: OSCAL+D or CALTRATE+D PO SCH (09:01)
[2019-10-22] MEDS: ROBITUSSIN DM PO SCH ×4 (09:03→20:13)
[2019-10-22] MEDS: VSL#3 PO SCH (09:03)
[2019-10-22] MEDS: SINGULAIR TAB 10 MG PO SCH (09:03)
[2019-10-22] MEDS: TYLENOL 325 MG TAB PO PRN ×2 (09:04→20:15)
[2019-10-22] MEDS: TUSSIONEX PENNKINETIC SUSP PO SCH ×2 (09:06→20:14)
[2019-10-22] MEDS: LOVENOX INJ 40 MG SYR SC SCH (09:37)
[2019-10-22] MEDS: REMDESIVIR (INVESTIGATIONAL DRUG GS-5734) 100 MG in NS 250 ML IV 250 ML IV SCH (10:32)
--- NOTE | 2019-10-22 10:36 | PCM.PROG ---
Progress Note - Progress Note for Day of Date of Exam: 10/21/19 - Subjective Subjective: IS BEING TREATED FOR COVID-19, PNEUMONIA. HE CONTINUES TO HAVE FEVER. TODAY, HE IS ALERT, LYING IN BED ON MORNING ROUNDS. HE CONTINUES WITH COUGH AND SHORTNESS OF BREATH. STAFF REPORTS THAT HIS OXYGEN SATURATIONS HAVE FALLEN TO THE 70s ON NASAL CANNULA. HE WAS PLACED ON THE VENTI-MASK AND THEN ON NON-REBREATHER. OXYGEN SATURATIONS INCREASED TO THE 90s AFTER BEING PLACE ON NON-REBREATHER. ON EXAMINATION, HEART IS REGULAR IN RATE AND RHYTHM. BILATERAL LUNGS ARE NOTED WITH SCATTERED WHEEZING THROUGHOUT. ABDOMEN IS ROUND, SOFT, AND NON-TENDER WITH NORMAL BOWEL SOUNDS NOTED IN ALL QUADRANTS. HIS VITALS THIS MORNING ARE: 103.3-682-04-100%NRP-136/63. LABS WERE OBTAINED. ABNORMAL LAB VALUES INCLUDE THE FOLLOWING: WBC 10.6, RBC 4.49, CALCIUM 8.3, FERRITIN 1920, AST 75, CRP 262.20, ALBUMIN 2.4, GLOBULIN 4.8. BLOOD CULTURES WERE SET UP. LABS WERE OBTAINED. ABNORMAL LAB VALUES INCLUDE THE FOLLOWING: Bilateral perihilar and middle/lower lung zone patchy airspace opacities, concerning for multifocal pneumonia. No pleural effusion or pneumothorax. Borderline cardiomegaly. HE IS CURRENTLY RECEIVING 1/2NS AT 75 ML/HR, LEVAQUIN 750MG IV DAILY, PROAIR INHALER 2 PUFFS Q6H, TUSSIONEX 5ML PO Q12H, TESSALON PERLES TID, ROBITUSSIN DM 10ML PO QID, LOVENOX 40MG SC DAILY, TYLENOL 650MG PO Q4H PRN, AND HIS HOME MEDICATIONS WERE RESUMED. TODAY, WE WILL START REMDESIVIR 200MG IV X 1 DOSE, THEN 100MG IV DAILY, ACTEMRA 400MG IV X 1 DOSE. WE WILL START SOLU-MEDROL 80MG IV Q8H TONIGHT. OTHERWISE, WE WILL FOLLOW UP WITH AM LABS AND CONTINUE TO MONITOR. - Past Medical Family Social History Past Med/Fam/Surg Hx: No changes since H&P Allergies: Allergies milk Allergy (Verified 10/19/19 18:14) - Review of Systems ROS: No change since H&P - Vital Signs and I&O's Vital Signs: Temperature 100.1 F Pulse Rate [Left] 127 Pulse Rate 111 Respiratory Rate 48 Blood Pressure [Right Calf] 136/62 Blood Pressure [Right Arm] 84/53 Blood Pressure [Left Arm] 119/66 Blood Pressure 103/60 O2 Sat by Pulse Oximetry 84 Intake and Output: Intake & Output 10/19/19 10/20/19 10/21/19 10/22/19 11:59 11:59 11:59 11:59 Intake Total 1050 / 1050 2880 / 2880 2680 / 2680 Balance 1050 / 1050 2880 / 2880 2680 / 2680 - Physical Exam Oriented: Normal Eyes: Normal Ear: Normal Nose: Normal Throat: Normal Respiratory: Generalized, Wheezes Cardiovascular: Normal. negative: S3, S4, Murmur : Normal Auscultation: Bowel Sounds: Normal Palpation: Normal Tenderness: Normal Skin: Normal Musculoskeletal: Normal Psychiatric: Normal Mood Description: Calm Affect: Normal Speech Pattern: Clear, Inappropriate - Laboratory and Diagnostics Result Diagrams: 10/22/19 04:37 10/22/19 04:37 Labs: 10/19/19 21:15 Blood Blood Culture - Preliminary 10/19/19 21:05 Blood Blood Culture - Preliminary Laboratory WBC 8.8 X10^3/uL (3.6-10.0) 10/22/19 04:37 RBC 4.07 X10^6/uL (4.7-6.0) L 10/22/19 04:37 Hgb 13.9 g/dL (13.5-18.0) 10/22/19 04:37 Hct 41.2 % (42.0-54.0) L 10/22/19 04:37 MCV 101.2 fL (80.0-100.0) H 10/22/19 04:37 MCH 34.2 pg (27.0-34.0) H 10/22/19 04:37 MCHC 33.8 g/dL (33.0-35.0) 10/22/19 04:37 RDW 12.1 % (11.6-16.5) 10/22/19 04:37 Plt Count 319 X10^3/uL (150.0-450.0) 10/22/19 04:37 Plt Count Comment Adequate (ADEQUATE) 10/22/19 04:37 MPV 9.0 fL (7.4-11.0) 10/22/19 04:37 Neut % (Auto) 91.2 % (42.0-75.0) H 10/22/19 04:37 Lymph % (Auto) 6.7 % (21.0-51.0) L 10/22/19 04:37 Meigs % (Auto) 1.9 % (0.0-13.0) 10/22/19 04:37 Eos % (Auto) 0.0 % (0.9-2.9) L 10/22/19 04:37 Baso % (Auto) 0.2 % (0.2-1.0) 10/22/19 04:37 Neut # (Auto) 8.0 x10^3/uL (2.2-4.8) H 10/22/19 04:37 Lymph # (Auto) 0.6 X10^3/uL (1.3-2.9) L 10/22/19 04:37 Meigs # (Auto) 0.2 x10^3/uL (0.3-0.8) L 10/22/19 04:37 Eos # (Auto) 0.0 x10^3/uL (0.0-0.2) 10/22/19 04:37 Baso # (Auto) 0.0 X10^3/uL (0.0-0.1) 10/22/19 04:37 Absolute Nucleated RBC 0.1 /100WBC 10/22/19 04:37 Total Counted 100 10/22/19 04:37 Neutrophils % (Manual) 25 % (39-76) L 10/22/19 04:37 Band Neutrophils % 44 % (0-10) H 10/22/19 04:37 Lymphocytes % (Manual) 11 % (13-43) L 10/22/19 04:37 Monocytes % (Manual) 6 % (4-9) 10/22/19 04:37 Metamyelocytes % 11 10/22/19 04:37 Myelocytes % 3 10/22/19 04:37 Plt Morphology Comment Normal (NORMAL) 10/22/19 04:37 RBC Morphology Normal (NORMAL) 10/22/19 04:37 Sample Site Lr 10/22/19 05:05 ABG pH 7.380 (7.35-7.45) 10/22/19 05:05 ABG pCO2 43.0 mmHg (35.0-45.0) 10/22/19 05:05 ABG pO2 52.0 mmHg (80.0-100.0) L 10/22/19 05:05 ABG HCO3 25.4 mmol/L (22-26) 10/22/19 05:05 ABG O2 Saturation 86.0 % (90-100) L 10/22/19 05:05 ABG Base Excess 0.1 mmol/L (-2.0-2.0) 10/22/19 05:05 Sandeep Test Pos 10/22/19 05:05 A-a Gradient 557.0 mmHg 10/22/19 05:05 FiO2 93.0 10/22/19 05:05 Blood Gas Comments Thuan well ae 10/22/19 05:05 Sodium 139 mmol/L (136-145) 10/22/19 04:37 Corrected Sodium 140 mmol/L (136-145) 10/22/19 04:37 Potassium 4.1 mmol/L (3.5-5.1) 10/22/19 04:37 Chloride 106 mmol/L (98-107) 10/22/19 04:37 Carbon Dioxide 25.4 mmol/L (21-32) 10/22/19 04:37 BUN 18 mg/dL (7-18) 10/22/19 04:37 Creatinine 1.14 mg/dL (0.70-1.30) 10/22/19 04:37 Est GFR (MDRD) Af Amer > 60 (>60) 10/22/19 04:37 Est GFR (MDRD) Non-Af > 60 (>60) 10/22/19 04:37 Glucose 162 mg/dL (65-99) H 10/22/19 04:37 Calcium 8.5 mg/dL (8.5-10.1) 10/22/19 04:37 Corrected Calcium 10.2 mg/dL (8.5-10.1) H 10/22/19 04:37 Ferritin 2144 ng/mL (26-388) H 10/22/19 04:37 Total Bilirubin 0.20 mg/dL (0.2-1.0) 10/22/19 04:37 AST 43 Units/L (15-37) H 10/22/19 04:37 ALT 21 Units/L (12-78) 10/22/19 04:37 Alkaline Phosphatase 62 Units/L (46-116) 10/22/19 04:37 Lactate Dehydrogenase 333 Units/L (85-227) H 10/19/19 21:05 C-Reactive Protein > 250.00 mg/L (0-3.0) H 10/22/19 04:37 Total Protein 6.4 g/dL (6.4-8.2) 10/22/19 04:37 Albumin 1.9 g/dL (3.4-5.0) L 10/22/19 04:37 Globulin 4.5 g/dL (2.5-4.5) 10/22/19 04:37 Albumin/Globulin Ratio 0.4 Ratio (1.1-2.1) L 10/22/19 04:37 - Plan (1) COVID-19 Status: Acute Plan: 1/2NS AT 75 ML/HR, LEVAQUIN 750MG IV DAILY, PROAIR INHALER 2 PUFFS Q6H, TUSSIONEX 5ML PO Q12H, TESSALON PERLES TID, ROBITUSSIN DM 10ML PO QID, LOVENOX 40MG SC DAILY, TYLENOL 650MG PO Q4H PRN, AND HIS HOME MEDICATIONS WERE RESUMED, MONITOR LABS AND CHEST XRAY, REMDESIVIR 200MG IV X 1 DOSE, THEN 100MG IV DAILY, ACTEMRA 400MG IV X 1 DOSE, SOLU-MEDROL 80MG IV TID, CONTINUE TO MONITOR. (2) Pneumonia Status: Acute Qualifiers: Pneumonia type: due to unspecified organism Laterality: bilateral Lung location: unspecified part of lung Qualified Code(s): J18.9 - Pneumonia, unspecified organism (3) SOB (shortness of breath) Status: Acute (4) Fever Status: Acute Qualifiers: Fever type: unspecified Qualified Code(s): R50.9 - Fever, unspecified (5) GERD (gastroesophageal reflux disease) Status: Acute Qualifiers: Esophagitis presence: esophagitis presence not specified Qualified Code(s): K21.9 - Gastro-esophageal reflux disease without esophagitis Plan: CONTINUE HOME MEDS (6) Hyperlipidemia Status: Acute Qualifiers: Hyperlipidemia type: mixed hyperlipidemia Qualified Code(s): E78.2 - Mixed hyperlipidemia Plan: CONTINUE HOME MEDS (7) Seizure disorder Status: Chronic
[2019-10-22] MEDS ORDERED: VITAMIN D (1.25MG) PO SCH (10:53)
[2019-10-22] MEDS ORDERED: MOTRIN TAB 800 MG PO ONE (15:41)
[2019-10-22] MEDS: MOTRIN TAB 800 MG PO PRN (15:49)
[2019-10-22] MEDS: DESYREL PO SCH (20:12)
[2019-10-22] MEDS: KLONOPIN TAB 0.5 MG PO SCH (20:12)
[2019-10-22] MEDS: REMERON PO SCH (20:13)
[2019-10-22] MEDS: LEVAQUIN PREMIX IV 750 MG 750 MG/150 ML BAG IV SCH (20:13)
[2019-10-22] MEDS: ZOCOR TAB 20 MG PO SCH (20:14)
[2019-10-23] MEDS ORDERED: NS 1/2 1000 ML IV 1,000 ML IV ONE ×2 (00:24→11:41)
[2019-10-23] MEDS: NS 1/2 1000 ML IV 1,000 ML IV SCH ×2 (00:30→16:10)
[2019-10-23] MEDS: VENTOLIN or PROAIR HFA IN SCH ×3 (00:40→11:40)
[2019-10-23 05:24] LABS: BASOPHILS % (AUTO) 0.3 % (0.2-1.0); HEMATOCRIT 41.2 % (42.0-54.0); HEMOGLOBIN 13.8 g/dL (13.5-18.0); LYMPHOCYTES # (AUTO) 0.7 X10^3/uL (1.3-2.9); LYMPHOCYTES % (AUTO) 5.1 % (21.0-51.0); MEAN CORPUSCULAR HEMOGLOBIN 33.8 pg (27.0-34.0); MEAN CORPUSCULAR HGB CONC 33.6 g/dL (33.0-35.0); MEAN CORPUSCULAR VOLUME 100.9 fL (80.0-100.0); MEAN PLATELET VOLUME 9.3 fL (7.4-11.0); MONOCYTES # (AUTO) 1.1 x10^3/uL (0.3-0.8); NEUTROPHILS # (AUTO) 11.8 x10^3/uL (2.2-4.8); NEUTROPHILS % (AUTO) 86.6 % (42.0-75.0); PLATELET COUNT 408 X10^3/uL (150.0-450.0); RED BLOOD COUNT 4.09 X10^6/uL (4.7-6.0); RED CELL DISTRIBUTION WIDTH 12.1 % (11.6-16.5); WHITE BLOOD COUNT 13.6 X10^3/uL (3.6-10.0)
[2019-10-23 05:43] LABS: ALANINE AMINOTRANSFERASE 20 Units/L (12-78); ALKALINE PHOSPHATASE 83 Units/L (46-116); ASPARTATE AMINO TRANSFERASE 36 Units/L (15-37); BLOOD UREA NITROGEN 23 mg/dL (7-18); CALCIUM 8.5 mg/dL (8.5-10.1); CARBON DIOXIDE 25.9 mmol/L (21-32); CHLORIDE 109 mmol/L (98-107); COR CA(FOR HYPOALB) 10.1 mg/dL (8.5-10.1); COR NA(FOR HYPERGLY) 145 mmol/L (136-145); CREATININE 1.07 mg/dL (0.70-1.30); SODIUM 144 mmol/L (136-145); TOTAL PROTEIN 6.1 g/dL (6.4-8.2); eGFR NON BLACK RACES > 60 (>60)
[2019-10-23] MEDS: SOLU-Medrol 40 MG VIAL IVP SCH ×3 (05:51→21:00)
[2019-10-23] MEDS: TYLENOL 325 MG TAB PO PRN (05:51)
[2019-10-23] MEDS: TESSALON PERLES PO SCH ×3 (05:51→21:00)
[2019-10-23 06:38] LABS: ABG BASE EXCESS 7.8 mmol/L (-2.0-2.0)
[2019-10-23 06:39] LABS: ABG ALLEN TEST POS
--- NOTE | 2019-10-23 06:46 | RAD ---
HISTORYShortness of breathSTUDYChest AP [id number]/25/2020FINDINGSPatient is rotated to the left. Heart size difficult to assess du e to obscuration of the left heart border by near complete opacification of the left yamilex thorax with subsequent shift of the heart mediastinal structures to the left. The opacification is likely due to a combination of infiltrates and left lung volume loss. Chest CT with contrast may be of further karen gnostic value. Interstitial lung changes are now present throughout the right lung. Bony thorax is un remarkable.IMPRESSIONPersistent opacification of the left yamilex thorax likely due to a combination of consolidation and atelectasis. Chest CT with contrast would be of further diagnostic valueInterstitia l lung changes throughout the right lungElectronically signed by: KATHERINE MIRZA (Oct 23, 2019 06:45:4 7)
[2019-10-23] MEDS ORDERED: DEPAKOTE D.R. TAB PO ONE ×2 (08:52→20:02)
[2019-10-23] MEDS: REMDESIVIR (INVESTIGATIONAL DRUG GS-5734) 100 MG in NS 250 ML IV 250 ML IV SCH (09:03)
[2019-10-23] MEDS: SINGULAIR TAB 10 MG PO SCH (09:05)
[2019-10-23] MEDS: PEPCID TAB 20 MG PO SCH ×2 (09:05→20:15)
[2019-10-23] MEDS: DEPAKOTE D.R. TAB PO SCH ×2 (09:05→20:15)
[2019-10-23] MEDS: VSL#3 PO SCH (09:06)
[2019-10-23] MEDS: OSCAL+D or CALTRATE+D PO SCH (09:07)
[2019-10-23] MEDS: LOVENOX INJ 40 MG SYR SC SCH (09:08)
[2019-10-23] MEDS: ROBITUSSIN DM PO SCH ×4 (09:13→20:15)
[2019-10-23] MEDS: TUSSIONEX PENNKINETIC SUSP PO SCH ×2 (10:00→20:15)
[2019-10-23] MEDS ORDERED: KLONOPIN TAB 0.5 MG PO ONE (13:31)
--- NOTE | 2019-10-23 15:08 | PCM.PROG ---
Progress Note - Progress Note for Day of Date of Exam: 10/22/19 - Subjective Subjective: IS BEING TREATED FOR COVID-19, PNEUMONIA. HE CONTINUES TO HAVE FEVER. TODAY, HE IS ALERT, LYING IN BED ON MORNING ROUNDS. HE CONTINUES WITH COUGH AND SHORTNESS OF BREATH. HIS BREATHING APPEARS TO BE MORE LABORED TODAY. HE IS ON HEATED HIGH FLOW OXYGEN AT THIS TIME. STAFF REPORTS THAT HE HAS FREQUENT COUGHING SPELLS. WHEN HE HAS THESE SPELLS, HIS OXYGEN SATURATIONS FALL TO THE 70s. ON EXAMINATION, HEART IS REGULAR IN RATE AND RHYTHM. BILATERAL LUNGS ARE NOTED WITH SCATTERED WHEEZING THROUGHOUT. ABDOMEN IS ROUND, SOFT, AND NON- TENDER WITH NORMAL BOWEL SOUNDS NOTED IN ALL QUADRANTS. HIS VITALS THIS MORNING ARE: 100.1-95-36-98%-126/67. LABS WERE OBTAINED. ABNORMAL LAB VALUES INCLUDE THE FOLLOWING: RBC 4.07, HCT 41.2, GLUCOSE 162, FERRITIN 2144, AST 43, CRP >250.00, ALBUMIN 1.9. BLOOD CULTURES WERE SET UP. ABG REVEALED: PH 7.380, PC02 43.0, P02 52.0, HC03 25.4, 02 SATURATION 86.0, FI02 93.0. HE IS CURRENTLY RECEIVING 1/2NS AT 75 ML/HR, LEVAQUIN 750MG IV DAILY, REMDESIVIR 100MG IV DAILY, SOLU-MEDROL 80MG IV Q8H, PROAIR INHALER 2 PUFFS Q6H, TUSSIONEX 5ML PO Q12H, TESSALON PERLES TID, ROBITUSSIN DM 10ML PO QID, LOVENOX 40MG SC DAILY, TYLENOL 650MG PO Q4H PRN, AND HIS HOME MEDICATIONS WERE RESUMED. WE WILL CONTINUE WITH CURRENT PLAN OF CARE TODAY. OTHERWISE, WE WILL FOLLOW UP WITH AM LABS AND CONTINUE TO MONITOR. - Past Medical Family Social History Past Med/Fam/Surg Hx: No changes since H&P Allergies: Allergies milk Allergy (Verified 10/19/19 18:14) - Review of Systems ROS: No change since H&P - Vital Signs and I&O's Vital Signs: Temperature 98.3 F Pulse Rate [Left] 62 Pulse Rate 95 Respiratory Rate 44 Blood Pressure [Right Calf] 149/70 Blood Pressure [Right Arm] 84/53 Blood Pressure [Left Arm] 119/66 Blood Pressure 103/60 O2 Sat by Pulse Oximetry 99 Intake and Output: Intake & Output 10/21/19 10/22/19 10/23/19 10/24/19 11:59 11:59 11:59 11:59 Intake Total 2880 / 2880 2680 / 2680 3409 / 3409 Balance 2880 / 2880 2680 / 2680 3409 / 3409 - Physical Exam Oriented: Normal Eyes: Normal Ear: Normal Nose: Normal Throat: Normal Respiratory: Generalized, Wheezes Cardiovascular: Normal. negative: S3, S4, Murmur : Normal Auscultation: Bowel Sounds: Normal Tenderness: Normal Skin: Normal Musculoskeletal: Normal Psychiatric: Normal Mood Description: Calm Affect: Normal Speech Pattern: Clear, Inappropriate - Laboratory and Diagnostics Result Diagrams: 10/23/19 04:28 10/23/19 04:28 Labs: 10/21/19 10:07 Blood Blood Culture - Preliminary 10/21/19 10:00 Blood Blood Culture - Preliminary 10/19/19 21:15 Blood Blood Culture - Preliminary 10/19/19 21:05 Blood Blood Culture - Preliminary Laboratory WBC 13.6 X10^3/uL (3.6-10.0) H 10/23/19 04:28 RBC 4.09 X10^6/uL (4.7-6.0) L 10/23/19 04:28 Hgb 13.8 g/dL (13.5-18.0) 10/23/19 04:28 Hct 41.2 % (42.0-54.0) L 10/23/19 04:28 MCV 100.9 fL (80.0-100.0) H 10/23/19 04:28 MCH 33.8 pg (27.0-34.0) 10/23/19 04:28 MCHC 33.6 g/dL (33.0-35.0) 10/23/19 04:28 RDW 12.1 % (11.6-16.5) 10/23/19 04:28 Plt Count 408 X10^3/uL (150.0-450.0) 10/23/19 04:28 Plt Count Comment Adequate (ADEQUATE) 10/22/19 04:37 MPV 9.3 fL (7.4-11.0) 10/23/19 04:28 Neut % (Auto) 86.6 % (42.0-75.0) H 10/23/19 04:28 Lymph % (Auto) 5.1 % (21.0-51.0) L 10/23/19 04:28 [place] % (Auto) 8.0 % (0.0-13.0) 10/23/19 04:28 Eos % (Auto) 0.0 % (0.9-2.9) L 10/23/19 04:28 Baso % (Auto) 0.3 % (0.2-1.0) 10/23/19 04:28 Neut # (Auto) 11.8 x10^3/uL (2.2-4.8) H 10/23/19 04:28 Lymph # (Auto) 0.7 X10^3/uL (1.3-2.9) L 10/23/19 04:28 [place] # (Auto) 1.1 x10^3/uL (0.3-0.8) H 10/23/19 04:28 Eos # (Auto) 0.0 x10^3/uL (0.0-0.2) 10/23/19 04:28 Baso # (Auto) 0.0 X10^3/uL (0.0-0.1) 10/23/19 04:28 Absolute Nucleated RBC 0.1 /100WBC 10/23/19 04:28 Total Counted 100 10/22/19 04:37 Neutrophils % (Manual) 25 % (39-76) L 10/22/19 04:37 Band Neutrophils % 44 % (0-10) H 10/22/19 04:37 Lymphocytes % (Manual) 11 % (13-43) L 10/22/19 04:37 Monocytes % (Manual) 6 % (4-9) 10/22/19 04:37 Metamyelocytes % 11 10/22/19 04:37 Myelocytes % 3 10/22/19 04:37 Plt Morphology Comment Normal (NORMAL) 10/22/19 04:37 RBC Morphology Normal (NORMAL) 10/22/19 04:37 Sample Site Lr 10/23/19 06:20 ABG pH 7.490 (7.35-7.45) H 10/23/19 06:20 ABG pCO2 42.0 mmHg (35.0-45.0) 10/23/19 06:20 ABG pO2 56.0 mmHg (80.0-100.0) L 10/23/19 06:20 ABG HCO3 32.0 mmol/L (22-26) H* 10/23/19 06:20 ABG O2 Saturation 91.0 % (90-100) 10/23/19 06:20 ABG Base Excess 7.8 mmol/L (-2.0-2.0) H 10/23/19 06:20 Sandeep Test Pos 10/23/19 06:20 A-a Gradient 498.0 mmHg 10/23/19 06:20 FiO2 85.0 10/23/19 06:20 Blood Gas Comments Thuan wel sw 10/23/19 06:20 Sodium 144 mmol/L (136-145) 10/23/19 04:28 Corrected Sodium 145 mmol/L (136-145) 10/23/19 04:28 Potassium 3.8 mmol/L (3.5-5.1) 10/23/19 04:28 Chloride 109 mmol/L (98-107) H 10/23/19 04:28 Carbon Dioxide 25.9 mmol/L (21-32) 10/23/19 04:28 BUN 23 mg/dL (7-18) H 10/23/19 04:28 Creatinine 1.07 mg/dL (0.70-1.30) 10/23/19 04:28 Est GFR (MDRD) Af Amer > 60 (>60) 10/23/19 04:28 Est GFR (MDRD) Non-Af > 60 (>60) 10/23/19 04:28 Glucose 143 mg/dL (65-99) H 10/23/19 04:28 Calcium 8.5 mg/dL (8.5-10.1) 10/23/19 04:28 Corrected Calcium 10.1 mg/dL (8.5-10.1) 10/23/19 04:28 Ferritin 2074 ng/mL (26-388) H 10/23/19 04:28 Total Bilirubin 0.20 mg/dL (0.2-1.0) 10/23/19 04:28 AST 36 Units/L (15-37) 10/23/19 04:28 ALT 20 Units/L (12-78) 10/23/19 04:28 Alkaline Phosphatase 83 Units/L (46-116) 10/23/19 04:28 Lactate Dehydrogenase 333 Units/L (85-227) H 10/19/19 21:05 C-Reactive Protein 115.60 mg/L (0-3.0) H 10/23/19 04:28 Total Protein 6.1 g/dL (6.4-8.2) L 10/23/19 04:28 Albumin 2.0 g/dL (3.4-5.0) L 10/23/19 04:28 Globulin 4.1 g/dL (2.5-4.5) 10/23/19 04:28 Albumin/Globulin Ratio 0.5 Ratio (1.1-2.1) L 10/23/19 04:28 Cortisol 11.3 ug/dL 10/19/19 21:05 - Plan (1) COVID-19 Status: Acute Plan: 1/2NS AT 75 ML/HR, LEVAQUIN 750MG IV DAILY, PROAIR INHALER 2 PUFFS Q6H, TUSSIONEX 5ML PO Q12H, TESSALON PERLES TID, ROBITUSSIN DM 10ML PO QID, LOVENOX 40MG SC DAILY, TYLENOL 650MG PO Q4H PRN, AND HIS HOME MEDICATIONS WERE RESUMED, MONITOR LABS AND CHEST XRAY, REMDESIVIR 100MG IV DAILY, SOLU-MEDROL 80MG IV TID, CONTINUE TO MONITOR. (2) Pneumonia Status: Acute Qualifiers: Pneumonia type: due to unspecified organism Laterality: bilateral Lung location: unspecified part of lung Qualified Code(s): J18.9 - Pneumonia, unspecified organism (3) SOB (shortness of breath) Status: Acute (4) Fever Status: Acute Qualifiers: Fever type: unspecified Qualified Code(s): R50.9 - Fever, unspecified (5) GERD (gastroesophageal reflux disease) Status: Acute Qualifiers: Esophagitis presence: esophagitis presence not specified Qualified Code(s): K21.9 - Gastro-esophageal reflux disease without esophagitis Plan: CONTINUE HOME MEDS (6) Hyperlipidemia Status: Acute Qualifiers: Hyperlipidemia type: mixed hyperlipidemia Qualified Code(s): E78.2 - Mixed hyperlipidemia Plan: CONTINUE HOME MEDS (7) Seizure disorder Status: Chronic
[2019-10-23] MEDS: PULMICORT NEB TX 0.5 MG NEB SCH ×2 (16:03→20:40)
[2019-10-23] MEDS: DUONEB 0.5 MG/3 MG (3 mL) NEB SCH ×2 (17:45→20:40)
[2019-10-23] MEDS: LEVAQUIN PREMIX IV 750 MG 750 MG/150 ML BAG IV SCH (20:15)
[2019-10-23] MEDS: KLONOPIN TAB 0.5 MG PO SCH (20:15)
[2019-10-23] MEDS: ZOCOR TAB 20 MG PO SCH (20:15)
[2019-10-23] MEDS: DESYREL PO SCH (20:15)
[2019-10-23] MEDS: REMERON PO SCH (20:15)
[2019-10-24] MEDS ORDERED: NS 1/2 1000 ML IV 1,000 ML IV ONE ×2 (04:25→19:57)
[2019-10-24 05:43] LABS: BASOPHILS # (AUTO) 0.1 X10^3/uL (0.0-0.1); BASOPHILS % (AUTO) 0.6 % (0.2-1.0); HEMATOCRIT 40.8 % (42.0-54.0); HEMOGLOBIN 13.8 g/dL (13.5-18.0); LYMPHOCYTES # (AUTO) 0.8 X10^3/uL (1.3-2.9); MEAN CORPUSCULAR HGB CONC 33.9 g/dL (33.0-35.0); MEAN CORPUSCULAR VOLUME 100.2 fL (80.0-100.0); MEAN PLATELET VOLUME 8.7 fL (7.4-11.0); MONOCYTES # (AUTO) 1.4 x10^3/uL (0.3-0.8); MONOCYTES % (AUTO) 8.8 % (0.0-13.0); NEUTROPHILS # (AUTO) 13.5 x10^3/uL (2.2-4.8); NEUTROPHILS % (AUTO) 85.6 % (42.0-75.0); PLATELET COUNT 399 X10^3/uL (150.0-450.0); RED BLOOD COUNT 4.07 X10^6/uL (4.7-6.0); RED CELL DISTRIBUTION WIDTH 12.1 % (11.6-16.5); WHITE BLOOD COUNT 15.8 X10^3/uL (3.6-10.0)
[2019-10-24 05:49] LABS: ALANINE AMINOTRANSFERASE 17 Units/L (12-78); ALKALINE PHOSPHATASE 70 Units/L (46-116); ASPARTATE AMINO TRANSFERASE 29 Units/L (15-37); BLOOD UREA NITROGEN 25 mg/dL (7-18); CALCIUM 8.2 mg/dL (8.5-10.1); CARBON DIOXIDE 30.5 mmol/L (21-32); CHLORIDE 107 mmol/L (98-107); COR CA(FOR HYPOALB) 9.8 mg/dL (8.5-10.1); COR NA(FOR HYPERGLY) 144 mmol/L (136-145); CREATININE 0.99 mg/dL (0.70-1.30); SODIUM 143 mmol/L (136-145); TOTAL PROTEIN 5.7 g/dL (6.4-8.2); eGFR NON BLACK RACES > 60 (>60)
[2019-10-24] MEDS: NS 1/2 1000 ML IV 1,000 ML IV SCH ×3 (06:38→20:13)
[2019-10-24] MEDS: TYLENOL 325 MG TAB PO PRN (06:39)
[2019-10-24] MEDS: TESSALON PERLES PO SCH ×3 (06:39→22:00)
[2019-10-24] MEDS: SOLU-Medrol 40 MG VIAL IVP SCH (06:39)
[2019-10-24] MEDS: DUONEB 0.5 MG/3 MG (3 mL) NEB SCH ×4 (08:30→21:20)
[2019-10-24] MEDS: PULMICORT NEB TX 0.5 MG NEB SCH ×2 (08:30→21:20)
[2019-10-24] MEDS ORDERED: DEPAKOTE D.R. TAB PO ONE ×2 (08:39→19:57)
[2019-10-24] MEDS: OSCAL+D or CALTRATE+D PO SCH (09:25)
[2019-10-24] MEDS: LOVENOX INJ 40 MG SYR SC SCH (09:25)
[2019-10-24] MEDS: DEPAKOTE D.R. TAB PO SCH ×3 (09:25→20:38)
[2019-10-24] MEDS: ROBITUSSIN DM PO SCH ×5 (09:26→20:37)
[2019-10-24] MEDS: TUSSIONEX PENNKINETIC SUSP PO SCH ×3 (09:26→20:39)
[2019-10-24] MEDS: SINGULAIR TAB 10 MG PO SCH (09:26)
[2019-10-24] MEDS: PEPCID TAB 20 MG PO SCH ×3 (09:26→20:39)
[2019-10-24] MEDS: VSL#3 PO SCH (09:27)
[2019-10-24] MEDS: REMDESIVIR (INVESTIGATIONAL DRUG GS-5734) 100 MG in NS 250 ML IV 250 ML IV SCH (11:00)
[2019-10-24] MEDS: LEVAQUIN PREMIX IV 750 MG 750 MG/150 ML BAG IV SCH (20:13)
[2019-10-24] MEDS: REMERON PO SCH ×2 (20:14→20:39)
[2019-10-24] MEDS: ZOCOR TAB 20 MG PO SCH ×2 (20:14→20:40)
[2019-10-24] MEDS: DESYREL PO SCH (20:14)
[2019-10-24] MEDS: KLONOPIN TAB 0.5 MG PO SCH ×2 (20:14→20:39)
[2019-10-25] MEDS: NS 1/2 1000 ML IV 1,000 ML IV SCH ×3 (03:04→17:20)
[2019-10-25] MEDS ORDERED: MORPHINE SULFATE INJ 2 MG INJ IVP ONE (03:17)
[2019-10-25] MEDS ORDERED: MORPHINE SULFATE INJ 2 MG INJ ONE (03:21)
[2019-10-25 05:08] LABS: BASOPHILS # (AUTO) 0.1 X10^3/uL (0.0-0.1); BASOPHILS % (AUTO) 0.6 % (0.2-1.0); HEMATOCRIT 42.9 % (42.0-54.0); HEMOGLOBIN 14.6 g/dL (13.5-18.0); LYMPHOCYTES # (AUTO) 1.1 X10^3/uL (1.3-2.9); LYMPHOCYTES % (AUTO) 11.1 % (21.0-51.0); MEAN CORPUSCULAR HEMOGLOBIN 33.8 pg (27.0-34.0); MEAN CORPUSCULAR VOLUME 99.4 fL (80.0-100.0); MEAN PLATELET VOLUME 8.5 fL (7.4-11.0); MONOCYTES # (AUTO) 0.4 x10^3/uL (0.3-0.8); MONOCYTES % (AUTO) 3.5 % (0.0-13.0); NEUTROPHILS # (AUTO) 8.7 x10^3/uL (2.2-4.8); NEUTROPHILS % (AUTO) 84.8 % (42.0-75.0); PLATELET COUNT 365 X10^3/uL (150.0-450.0); RED BLOOD COUNT 4.32 X10^6/uL (4.7-6.0); RED CELL DISTRIBUTION WIDTH 12.1 % (11.6-16.5); WHITE BLOOD COUNT 10.3 X10^3/uL (3.6-10.0)
[2019-10-25 05:20] LABS: ALANINE AMINOTRANSFERASE 13 Units/L (12-78); ALBUMIN 2.1 g/dL (3.4-5.0); ALKALINE PHOSPHATASE 67 Units/L (46-116); ASPARTATE AMINO TRANSFERASE 33 Units/L (15-37); BLOOD UREA NITROGEN 22 mg/dL (7-18); CALCIUM 8.1 mg/dL (8.5-10.1); CARBON DIOXIDE 32.3 mmol/L (21-32); CHLORIDE 105 mmol/L (98-107); COR CA(FOR HYPOALB) 9.6 mg/dL (8.5-10.1); COR NA(FOR HYPERGLY) 142 mmol/L (136-145); CREATININE 0.89 mg/dL (0.70-1.30); SODIUM 142 mmol/L (136-145); TOTAL PROTEIN 5.4 g/dL (6.4-8.2); eGFR NON BLACK RACES > 60 (>60)
[2019-10-25 05:37] LABS: GIANT PLATELET FEW; PLATELET MORPHOLOGY COMMENT NORMAL (NORMAL)
[2019-10-25] MEDS: TESSALON PERLES PO SCH ×2 (06:41→15:04)
[2019-10-25] MEDS: DEPAKOTE D.R. TAB PO SCH (08:41)
[2019-10-25] MEDS: OSCAL+D or CALTRATE+D PO SCH (08:41)
[2019-10-25] MEDS: PEPCID TAB 20 MG PO SCH (08:41)
[2019-10-25] MEDS: VSL#3 PO SCH (08:42)
[2019-10-25] MEDS: ROBITUSSIN DM PO SCH ×3 (08:42→17:20)
[2019-10-25] MEDS: SINGULAIR TAB 10 MG PO SCH (08:42)
[2019-10-25] MEDS: TUSSIONEX PENNKINETIC SUSP PO SCH (08:42)
[2019-10-25] MEDS: LOVENOX INJ 40 MG SYR SC SCH (09:08)
[2019-10-25] MEDS ORDERED: NS 1/2 1000 ML IV 1,000 ML IV ONE (09:13)
[2019-10-25] MEDS: REMDESIVIR (INVESTIGATIONAL DRUG GS-5734) 100 MG in NS 250 ML IV 250 ML IV SCH (09:23)
[2019-10-25] MEDS: DUONEB 0.5 MG/3 MG (3 mL) NEB SCH ×2 (09:35→12:45)
[2019-10-25] MEDS: PULMICORT NEB TX 0.5 MG NEB SCH (09:35)
[2019-10-25] MEDS ORDERED: VERSED 100 MG in NS 100 ML IV 80 ML IV PRN (12:13)
[2019-10-25] MEDS ORDERED: MORPHINE SULFATE PCA 30 MG IVP PRN (12:13)
[2019-10-25] MEDS ORDERED: MORPHINE SULFATE PCA 30 MG ONE (12:38)
[2019-10-25] MEDS ORDERED: NS 100 ML IV 100 ML IV ONE (12:39)
[2019-10-25 18:24] VITALS: BP 0/0
== END 2019-10-25 21:10 | disposition expired | DRG 177 ==
LOC: ER 18:12 → ICU 20:33
PROVIDERS: ADMIT Internal Medicine; ATTEND Internal Medicine
DX: E78.2 Mixed hyperlipidemia; R06.02 Shortness of breath; M19.90 Unspecified osteoarthritis, unspecified site; J12.89 Other viral pneumonia; R26.89 Other abnormalities of gait and mobility; R50.9 Fever, unspecified; G71.09 Other specified muscular dystrophies; K21.9 Gastro-esophageal reflux disease without esophagitis; G40.89 Other seizures; I46.9 Cardiac arrest, cause unspecified; Z66 Do not resuscitate; U07.1 COVID-19
CPT/HCPCS: 36415; 36600; 71010; 71045; 80053; 82533; 82728; 82803; 83615; 85025; 86140; 87040; 87077; 94640; 96365; 97162; 97166; 97535; 99284; A4222; J1650; J1956; J2270; J2271; J2920; J3262; J3490; J7050; J7620; J7626